=== PATIENT | female | born 1980 | race Caucasian/White ===

== ENCOUNTER 2022-02-01 07:46 | Outpatient (CLI) | payer OTHER, SELFPAY ==
--- NOTE | 2022-02-01 07:45 | CRLHL7_ITS ---
For Patients: As a result of the Century Cures Act, medical imaging exams and procedure reports are released immediately into your electronic medical record. You may view this report before your referring provider. If you have questions, please contact your health care provider. BILATERAL SCREENING MAMMOGRAM WITH COMPUTER-AIDED DETECTION AND TOMOSYNTHESIS TECHNIQUE: CC, MLO and Implant displaced views were obtained. These mammographic images have been obtained using full-field digital technique. These mammographic images were interpreted with the benefit of computer-aided detection. Breast Tomosynthesis was used in this interpretation. COMPARISON FILM: 01/27/21. FINDINGS: The breasts are heterogeneously dense, which may obscure small masses IMPRESSION: There is no radiographic evidence for malignancy. ASSESSMENT: BI-RADS Category 2: Benign RECOMMENDATION: Routine screening mammogram in 1 year. A lay language report of this examination will be provided to the patient. Issac Guzmán M.D. Diagnostic Radiologist [email or web address] DEANA/Dictated by: Issac Guzmán MD @ 02/01/2022 11:17:00 AM (Electronically Signed)
== END 2022-02-01 07:47 | disposition home or self-care (01) ==
LOC: MAMMO 07:48
PROVIDERS: Visit Provider Obstetrics & Gynecology
DX: Z12.31 Encounter for screening mammogram for malignant neoplasm of breast (principal); R92.2 Inconclusive mammogram
CPT/HCPCS: 77063; 77067

== ENCOUNTER 2023-11-10 14:44 | Outpatient (CLI) | payer OTHER, SELFPAY ==
--- NOTE | 2023-11-10 15:20 | CRLHL7_ITS ---
For Patients: As a result of the Century Cures Act, medical imaging exams and procedure reports are released immediately into your electronic medical record. You may view this report before your referring provider. If you have questions, please contact your health care provider. BILATERAL SCREENING MAMMOGRAM WITH COMPUTER-AIDED DETECTION AND TOMOSYNTHESIS TECHNIQUE: CC, MLO and Implant displaced views were obtained. These mammographic images have been obtained using full-field digital technique. These mammographic images were interpreted with the benefit of computer-aided detection. Breast Tomosynthesis was used in this interpretation. COMPARISON FILM: 02/01/22, 01/27/21. FINDINGS: The breasts are heterogeneously dense, which may obscure small masses. IMPRESSION: There is no radiographic evidence for malignancy. ASSESSMENT: BI-RADS Category 2: Benign RECOMMENDATION: Routine screening mammogram in 1 year. A lay language report of this examination will be provided to the patient. Issac Guzmán M.D. Diagnostic Radiologist [email or web address] SP/Dictated by: Issac Guzmán MD @ 11/16/2023 12:33:00 PM (Electronically Signed)
== END 2023-11-10 14:45 | disposition home or self-care (01) ==
LOC: MAMMO 14:44
PROVIDERS: Visit Provider Obstetrics & Gynecology
DX: Z12.31 Encounter for screening mammogram for malignant neoplasm of breast (principal); R92.2 Inconclusive mammogram
CPT/HCPCS: 77063; 77067

== ENCOUNTER 2024-07-26 10:56 | Outpatient (CLI) | payer OTHER, SELFPAY ==
--- NOTE | 2024-07-26 11:15 | CRLHL7_ITS ---
For Patients: As a result of the Century Cures Act, medical imaging exams and procedure reports are released immediately into your electronic medical record. You may view this report before your referring provider. If you have questions, please contact your health care provider. INDICATION: Abnormal uterine bleeding COMPARISON: none TECHNIQUE: 2D hare scale and color Doppler images were acquired of the pelvis using a transabdominal and transvaginal approach. FINDINGS: Sonographic images demonstrate a normal size and smooth outer contour of the uterus. Uterus measures 8.4 cm in length by 5.4 cm in AP diameter by 6.0 cm in transverse dimension. The myometrium has a heterogeneous echotexture. The endometrial lining appears somewhat ill-defined and measures 7.7 mm in composite thickness. The right ovary measures 3.9 x 2.1 x 1.8 cm in size and the left ovary measures 3.5 x 2.5 x 2.6 cm. The ovaries demonstrate normal arterial and venous blood flow on color Doppler analysis. There are no suspicious fluid collections within the cul-de-sac. Simple left ovarian cyst is present measuring 2.1 cm. IMPRESSION: Endometrial thickness 7.7 millimeters with some decreased definition of the junctional zone and heterogeneity of the myometrium which could suggest adenomyosis. Dictated by Issac Guzmán MD @ 07/27/2024 10:28:49 AM (Electronically Signed)
== END 2024-07-26 10:57 | disposition home or self-care (01) ==
LOC: US 10:57
PROVIDERS: Visit Provider Obstetrics & Gynecology
DX: N93.9 Abnormal uterine and vaginal bleeding, unspecified (principal); R93.89 Abnormal findings on diagnostic imaging of other specified body structures
CPT/HCPCS: 76830; 76856

== ENCOUNTER 2024-08-16 11:30 | Outpatient (CLI) | payer OTHER, SELFPAY | END 2024-08-16 11:31 | disposition home or self-care (01) | LOC: NFLDREF 11:31 | PROVIDERS: Visit Provider Obstetrics & Gynecology | DX: R79.89 Other specified abnormal findings of blood chemistry (principal) | CPT/HCPCS: 84403 ==